=== PATIENT | female | born 1995 | race Hispanic/Latino ===

== ENCOUNTER 2018-12-23 16:54 | Emergency (ER) | payer BC, OTHER ==
[2018-12-23] MEDS ORDERED: PANTOPRAZOLE 40 MG INJ ONE (17:26)
[2018-12-23] MEDS ORDERED: NA CHLORIDE 0.9% 1,000 ML ONE (17:26)
[2018-12-23] MEDS ORDERED: ONDANSETRON 4 MG/2 ML VIAL ONE (17:26)
[2018-12-23 17:32] LABS: Absolute Lymphocytes (CBC) 1.5 K/uL (0.7-4.9); Basophils % 0.4 % (0-1.3); Hematocrit 47.4 % (36.0-45.0); Lymphocytes % 14.6 % (15.3-44.8); MPV 9.2 fL (7.6-11.3); RBC Red Blood Cell Count 5.35 M/uL (3.86-4.86)
[2018-12-23 17:33] LABS: Protime INR 1.14
[2018-12-23 17:50] LABS: Albumin 4.8 g/dL (3.4-5.0); Bilirubin Total 0.3 mg/dL (0.2-1.0); Potassium 3.7 mmol/L (3.5-5.1); Protein, Total 8.9 g/dL (6.4-8.2)
[2018-12-23 18:28] LABS: Urine Blood NEGATIVE (NEG); Urine Glucose NEGATIVE (NEG); Urine Protein 2+ (NEG); Urine pH 8.5 (5.0-7.0)
--- NOTE | 2018-12-23 18:51 | ER ---
Nurse's Notes [facility] Name: Ayla Harvey Age: 23 yrs Sex: Female : 1995 Arrival Date: 12/23/2018 Time: 16:59 Bed 25 Private MD: Diagnosis: Vomiting;Gastrointestinal hemorrhage, unspecified-UPPER , STABLE Presentation: 12/23 17:04 Presenting complaint: Patient states: i started vomiting blood since this morning like dark blood and i couldn't hold fluids; reports L side abd pain;. Transition of care: patient was not received from another setting of care. Onset of symptoms was December 23, 2018. Risk Assessment: Do you want to hurt yourself or someone else? Patient reports no desire to harm self or others. Initial Sepsis Screen: Does the patient meet any 2 criteria? No. Patient's initial sepsis screen is negative. Does the patient have a suspected source of infection? No. Patient's initial sepsis screen is negative. Care prior to arrival: None. 17:04 Method Of Arrival: Ambulatory 17:04 Acuity: RA 3 Triage Assessment: 17:05 General: Appears in no apparent distress. comfortable, Behavior is cooperative, bp appropriate for age, anxious. Pain: Complains of pain in abdomen. EENT: No deficits noted. Neuro: No deficits noted. Cardiovascular: No deficits noted. Respiratory: No deficits noted. GI: Reports nausea, vomiting. : No signs and/or symptoms were reported regarding the genitourinary system. Derm: No deficits noted. Musculoskeletal: No deficits noted. 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 - Social history:: Smoking status: Patient uses tobacco products, unknown amount. - Family history:: not pertinent. - Ebola Screening: : No symptoms or risks identified at this time. Screenin:18 Abuse screen: Denies threats or abuse. Denies injuries from another. Nutritional bp screening: No deficits noted. Tuberculosis screening: No symptoms or risk factors identified. Fall Risk None identified. Assessment: 17:05 General: SEE TRIAGE NOTE. bp 17:54 Reassessment: ALL CURRENT ORDERS COMPLETED, RESULTS PENDING. NO ACTIVE VOMITING AT THIS bp TIME. Vital Signs: 17:05 BP 125 / 85; Pulse 105; Resp 18; Temp 98.1(O); Pulse Ox 100% on R/A; Weight 58.97 kg; hj Height 5 ft. 2 in. (157.48 cm); Pain 6/10; 17:55 BP 110 / 74; Pulse 86; Resp 16; Pulse Ox 98% ; bp 17:05 Body Mass Index 23.78 (58.97 kg, 157.48 cm) ED Course: 16:59 Patient arrived in ED. mr 17:05 Triage completed. hj 17:05 Arm band placed on left wrist. hj 17:09 Don Eugene, CHANTE is Primary Nurse. bp 17:11 Renzo Brand MD is Attending Physician. [facility] 17:18 Patient has correct armband on for positive identification. Bed in low position. Call bp light in reach. Side rails up X2. Adult w/ patient. 17:20 Inserted saline lock: 20 gauge in left antecubital area, using aseptic technique. Blood bp collected. 19:05 No provider procedures requiring assistance completed. IV discontinued, intact, bp bleeding controlled, No redness/swelling at site. Pressure dressing applied. Administered Medications: 17:30 Drug: NS 0.9% 1000 ml Route: IV; Rate: 1 bolus; Site: left antecubital; bp 19:07 Follow up: IV Status: Completed infusion; IV Intake: 1000ml bp 17:30 Drug: Zofran 4 mg Route: IVP; Site: left antecubital; bp 19:07 Follow up: Response: Nausea is decreased bp 17:30 Drug: ProTONIX 40 mg Route: IVP; Site: left antecubital; bp 19:07 Follow up: Response: No adverse reaction bp Intake: 19:07 IV: 1000ml; Total: 1000ml. bp Outcome: 18:50 Discharge ordered by . coreen 19:05 Discharged to home ambulatory, with family. bp 19:05 Condition: stable 19:05 Discharge instructions given to patient, Instructed on discharge instructions, follow up and referral plans. medication usage, Demonstrated understanding of instructions, follow-up care, medications, Prescriptions given X 2. 19:06 Patient left the ED. iw Signatures: Renzo Brand MD MD cha Rivera, Mary mr Williams, Irene, RN RN Justin Chan, RN RN Don Stanford, RN RN bp
--- NOTE | 2018-12-23 18:52 | EDPHYS ---
Physician Documentation [facility] Name: Ayla Harvey Age: 23 yrs Sex: Female : 1995 Arrival Date: 12/23/2018 Time: 16:59 Bed 25 Private MD: ED Physician Renzo Brand HPI: 12/23 18:47 This 23 yrs old Female presents to ER via Ambulatory with complaints of coreen Vomiting blood. 18:47 The patient presents with abdominal pain in the upper abdomen. Onset: The coreen symptoms/episode began/occurred just prior to arrival, this morning. The patient presents to the emergency department vomiting blood, a small amount. Onset: The symptoms/episode began/occurred this morning. Abdominal pain: described as crampy, located in the epigastric area. Modifying factors: The symptoms are alleviated by nothing, the symptoms are aggravated by nothing. The symptoms do not radiate. 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 - Social history:: Smoking status: Patient uses tobacco products, unknown amount. - Family history:: not pertinent. - Ebola Screening: : No symptoms or risks identified at this time. ROS: 18:47 Constitutional: Negative for fever, chills, and weight loss, Eyes: Negative for injury, coreen pain, redness, and discharge, ENT: Negative for injury, pain, and discharge, Neck: Negative for injury, pain, and swelling, Cardiovascular: Negative for chest pain, palpitations, and edema, Respiratory: Negative for shortness of breath, cough, wheezing, and pleuritic chest pain, Back: Negative for injury and pain, : Negative for injury, bleeding, discharge, and swelling, MS/Extremity: Negative for injury and deformity, Skin: Negative for injury, rash, and discoloration, Neuro: Negative for headache, weakness, numbness, tingling, and seizure, Psych: Negative for depression, anxiety, suicide ideation, homicidal ideation, and hallucinations, Allergy/Immunology: Negative for hives, rash, and allergies, Endocrine: Negative for neck swelling, polydipsia, polyuria, polyphagia, and marked weight changes, Hematologic/Lymphatic: Negative for swollen nodes, abnormal bleeding, and unusual bruising. 18:47 Abdomen/GI: Positive for nausea and vomiting, vomiting. Exam: 18:47 Constitutional: This is a well developed, well nourished patient who is awake, alert, coreen and in no acute distress. Head/Face: Normocephalic, atraumatic. Eyes: Pupils equal round and reactive to light, extra-ocular motions intact. Lids and lashes normal. Conjunctiva and sclera are non-icteric and not injected. Cornea within normal limits. Periorbital areas with no swelling, redness, or edema. ENT: Nares patent. No nasal discharge, no septal abnormalities noted. Tympanic membranes are normal and external auditory canals are clear. Oropharynx with no redness, swelling, or masses, exudates, or evidence of obstruction, uvula midline. Mucous membranes moist. Neck: Trachea midline, no thyromegaly or masses palpated, and no cervical lymphadenopathy. Supple, full range of motion without nuchal rigidity, or vertebral point tenderness. No Meningismus. Chest/axilla: Normal chest wall appearance and motion. Nontender with no deformity. No lesions are appreciated. Cardiovascular: Regular rate and rhythm with a normal S1 and S2. No gallops, murmurs, or rubs. Normal PMI, no JVD. No pulse deficits. Respiratory: Lungs have equal breath sounds bilaterally, clear to auscultation and percussion. No rales, rhonchi or wheezes noted. No increased work of breathing, no retractions or nasal flaring. Abdomen/GI: Soft, non-tender, with normal bowel sounds. No distension or tympany. No guarding or rebound. No evidence of tenderness throughout. Back: No spinal tenderness. No costovertebral tenderness. Full range of motion. Skin: Warm, dry with normal turgor. Normal color with no rashes, no lesions, and no evidence of cellulitis. MS/ Extremity: Pulses equal, no cyanosis. Neurovascular intact. Full, normal range of motion. Neuro: Awake and alert, GCS 15, oriented to person, place, time, and situation. Cranial nerves II-XII grossly intact. Motor strength 5/5 in all extremities. Sensory grossly intact. Cerebellar exam normal. Normal gait. Psych: Awake, alert, with orientation to person, place and time. Behavior, mood, and affect are within normal limits. Vital Signs: 17:05 BP 125 / 85; Pulse 105; Resp 18; Temp 98.1(O); Pulse Ox 100% on R/A; Weight 58.97 kg; hj Height 5 ft. 2 in. (157.48 cm); Pain 6/10; 17:55 BP 110 / 74; Pulse 86; Resp 16; Pulse Ox 98% ; bp 17:05 Body Mass Index 23.78 (58.97 kg, 157.48 cm) hj MDM: 17:11 Patient medically screened. [facility] 12/23 17:12 Order name: CBC with Diff; Complete Time: 18:47 [facility] 12/23 17:12 Order name: Comprehensive Metabolic Panel; Complete Time: 18:47 [facility] 12/23 17:12 Order name: PT-INR; Complete Time: 18:47 [facility] 12/23 17:12 Order name: Lipase; Complete Time: 18:47 [facility] 12/23 17:35 Order name: Urine Dipstick--Ancillary (enter results); Complete Time: 18:47 12/23 17:35 Order name: Urine --Ancillary (enter results); Complete Time: 18:47 12/23 17:12 Order name: Urine Dipstick-Ancillary (obtain specimen); Complete Time: 17:33 [facility] 12/23 17:12 Order name: Urine Test (obtain specimen); Complete Time: 17:33 [facility] Administered Medications: 17:30 Drug: NS 0.9% 1000 ml Route: IV; Rate: 1 bolus; Site: left antecubital; bp 19:07 Follow up: IV Status: Completed infusion; IV Intake: 1000ml bp 17:30 Drug: Zofran 4 mg Route: IVP; Site: left antecubital; bp 19:07 Follow up: Response: Nausea is decreased bp 17:30 Drug: ProTONIX 40 mg Route: IVP; Site: left antecubital; bp 19:07 Follow up: Response: No adverse reaction bp Disposition: 12/23/18 18:50 Discharged to Home. Impression: Vomiting, Gastrointestinal hemorrhage, unspecified - UPPER , STABLE. - Condition is Stable. - Discharge Instructions: Hematemesis, Nausea and Vomiting, Adult, Nausea and Vomiting, Adult, [id number]. - Prescriptions for Protonix 40 mg Oral Tablet - take 1 tablet by ORAL route once daily; 30 tablet. Zofran 4 mg Oral Tablet - take 1 tablet by ORAL route every 12 hours As needed; 20 tablet. - Medication Reconciliation Form, Thank You Letter, Antibiotic Education, Prescription Opioid Use form. - Follow up: Private Physician; When: 2 - 3 days; Reason: Recheck today's complaints, Continuance of care, Re-evaluation by your physician. - Problem is new. - Symptoms have improved. Signatures: Dispatcher [employer] EDNE Renzo Brand MD MD cha Williams, Irene, RN RN Justin Chan RN RN Don Eugene RN RN bp Corrections: (The following items were deleted from the chart) 19:06 18:50 12/23/2018 18:50 Discharged to Home. Impression: Vomiting; Gastrointestinal iw hemorrhage, unspecified - UPPER , STABLE. Condition is Stable. Forms are Medication Reconciliation Form, Thank You Letter, Antibiotic Education, Prescription Opioid Use. Follow up: Private Physician; When: 2 - 3 days; Reason: Recheck today's complaints, Continuance of care, Re-evaluation by your physician. Problem is new. Symptoms have improved. coreen
== END 2018-12-23 19:06 | disposition home or self-care (01) ==
LOC: ER 16:54
DX: K92.2 Gastrointestinal hemorrhage, unspecified (principal); Z72.0 Tobacco use
CPT/HCPCS: 85025; 36415; 81025; 85610; 81003; 83690; 80053; C9113; J7030; J2405; 96361; 96374; 96375; 99284

== ENCOUNTER 2024-12-17 12:00 | Emergency (ER) | payer BC, OTHER ==
--- OUTSIDE RECORDS SUMMARY | 2024-12-17 12:13 | XMS REPORT | Continuity of Care Document ---
Author Name Unknown Address [address] [facility] [address] [place] [address] [facility] Address [address] 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 Name Role Phone RACHAEL CAMPBELL Primary Care Physician Unavail able Only, Mello Db Test Attending Clinician UnavailDolly Willett Attending Clinician [phone] DOLLY NEWMAN Attending Clinician Unavailabl e Doctor Unassigned, [place] Attending Clinician U RACHAEL Sargent Attending Clinician Unavailabl e JEFFREY HECK Attending Clinician Unavailable Rachael Murray Attending Clinician [phone] Visit, Ranjitchyissel Nurse Attending Clinician Unahunter DURÁN, Filiberto Caldwell Attending Clinician + [phone] Marcie Garcia Attending Clinician [phone] MARCIE YARBROUGH Attending Clinician Unavailable Ryann Fournier MD Attending Clinician [phone] RYANN FOURNIER Attending Clinician Unavailabl e Payers Payer Name Policy Type Policy Number Effective Date Expirati on Date Source [facility] [id number] 2019 00:00:00 [employer] II [id number] 2012 00:00:00 Problems Condition Name Condition Details Condition Category Status Onset Date Resolution Date Last Treatment Date Treating Clinician Comments Source Mixed hyperlipid emia Mixed hyperlipid emia Disease Active 2019-04 00:00: 00 [facility] Atypical squamous cell of undetermin ed significan ce of cervix Atypical squamous cell of undetermin ed significan ce of cervix Disease Active 01-15 00:00: 00 [facility] Missed menses Missed menses Disease Active 01-05 00:00: 00 [facility] Encounter for other general counseling or advice on contracept ion Encounter for other general counseling or advice on contracept ion Disease Active 01-05 00:00: 00 [facility] BMI 28.0-28.9, adult BMI 28.0-28.9, adult Disease Active 01-05 00:00: 00 [facility] Irregular menstrual cycle Irregular menstrual cycle Disease Active 01-05 00:00: 00 [facility] No known active problems No known active problems Disease [facility] Allergies, Adverse Reactions, Alerts Allergy Name Allergy Type Status Severity Reaction(s) Onset Date Inactive Date Treating Clinician Comments Source NO KNOWN ALLERGIE S Drug Class Active [facility] Social History Social Habit Start Date Stop Date Quantity Comments Source Exposure to SARS-CoV-2 (event) Yes [facility] History of tobacco use Cigarette Smoker [facility] Alcohol intake 2020-04-06 00:00:00 2020-04-06 00:00:00 Current drinker of alcohol (finding) [facility] History SDOH Alcohol Frequency 2020-01-06 00:00:00 2020-01-06 00:00:00 99 [facility] History SDOH Alcohol Std Drinks 2020-01-06 00:00:00 2020-01-06 00:00:00 99 [facility] History SDOH Alcohol Binge 2020-01-06 00:00:00 2020-01-06 00:00:00 99 [facility] Tobacco use and exposure 2020-01-06 00:00:00 2020-01-06 00:00:00 Never used [facility] Alcohol Comment 2020-01-06 00:00:00 2020-01-06 00:00:00 social [facility] Sex Assigned At 1995 00:00:00 1995 00:00:00 [facility] Smoking Status Start Date Stop Date Source Current every day smoker 2020-01-06 00:00:00 [facility] Never smoker [facility] Medications Ordered Medication Name Filled Medication Name Start Date Stop Date Current Medication? Ordering Clinician Indication Dosage Frequency Signature (SIG) Comments Components Source medroxyPROG ESTERone (PROVERA) 10 mg tablet 01-05 00:00: 00 01-16 04:59 :00 No [id number] 10mg Take 1 tablet by mouth daily for 10 days. [facility] MELOXICAM 15 mg tablet 12-31 00:00: 00 Yes [id number] TAKE 1 TABLET BY MOUTH EVERY DAY [facility] meloxicam 15 mg tablet 12-07 00:00: 00 12-31 00:00 :00 No [id number] 15mg Take 1 tablet by mouth daily for 30 days. [facility] mupirocin (BACTROBAN OINT) 2 % ointment 11-14 00:00: 00 01-05 00:00 :00 No Apply to area(s) 3 (three) times daily. [facility] Vital Signs Vital Name Observation Time Observation Value Comments S roselyn Systolic blood pressure 2020-04-06 19:27:00 124 mm[Hg] [facility] Diastolic blood pressure 2020-04-06 19:27:00 84 mm[Hg] [facility] Heart rate 2020-04-06 19:27:00 82 /min [facility] Body temperature 2020-04-06 19:27:00 37 Anh [facility] Respiratory rate 2020-04-06 19:27:00 16 /min [facility] Body height 2020-04-06 19:27:00 157.5 cm [facility] Body weight 2020-04-06 19:27:00 70.421 kg [facility] BMI 2020-04-06 19:27:00 28.40 kg/m2 [facility] Systolic blood pressure 2020-02-13 18:04:00 116 mm[Hg] [facility] Diastolic blood pressure 2020-02-13 18:04:00 83 mm[Hg] [facility] Heart rate 2020-02-13 18:04:00 75 /min [facility] Body temperature 2020-02-13 18:04:00 36.17 Anh [facility] Respiratory rate 2020-02-13 18:04:00 16 /min [facility] Body height 2020-02-13 18:04:00 157.5 cm [facility] Body weight 2020-02-13 18:04:00 71.356 kg [facility] BMI 2020-02-13 18:04:00 28.77 kg/m2 [facility] Systolic blood pressure 2020-01-06 18:49:00 118 mm[Hg] [facility] Diastolic blood pressure 2020-01-06 18:49:00 81 mm[Hg] [facility] Heart rate 2020-01-06 18:49:00 71 /min Un[facility] Body temperature 2020-01-06 18:49:00 36.17 Anh [facility] Respiratory rate 2020-01-06 18:49:00 16 /min [facility] Body height 2020-01-06 18:49:00 157.5 cm [facility] Body weight 2020-01-06 18:49:00 71.215 kg [facility] BMI 2020-01-06 18:49:00 28.72 kg/m2 [facility] Systolic blood pressure 2019-12-08 19:41:00 127 mm[Hg] [facility] Diastolic blood pressure 2019-12-08 19:41:00 89 mm[Hg] [facility] Heart rate 2019-12-08 19:41:00 73 /min [facility] Body height 2019-12-08 19:33:00 157.5 cm [facility] Body weight 2019-12-08 19:33:00 70.126 kg [facility] BMI 2019-12-08 19:33:00 28.28 kg/m2 [facility] Procedures Procedure Date / Time Performed Performing Clinician Source COVID-19 (MOLECULAR TESTING NUCLEIC ACID AMPLIFICATION) 2021-04-27 01:15:00 Kathryn Boss [facility] LAB ONLY COVID INTERPRETATION 2021-04-27 01:15:00 Kathryn Boss [facility] CONSENT/REFUSAL FOR DIAGNOSIS AND TREATMENT 2021-04-27 01:07:06 Doctor Unassigned, [place] [facility] FLU VACC ([id number]), 6+ MONTHS, IM, QUAD 2020-04-06 20:11:07 Rachael Campbell [facility] GARDASIL 9 (HPV 9V) VACCINE 2020-02-13 18:07:20 Rachael Campbell [facility] GARDASIL 9 (HPV 9V) VACCINE 2020-01-06 19:51:13 Rachael Campbell [facility] POCT TEST 2020-01-06 19:00:00 Davian Campbell [facility] XR TOES 2 VW RIGHT 2019-12-04 21:19:35 Ryann Fournier [facility] Encounters Start Date/Time End Date/Time Encounter Type Admission Type Attending [facility] Care Department Encounter ID Source 2024-01-31 15:00:44 2024-01-31 15:00:44 Outpatient [facility] [id number] Wayne [address] Fahad 2022-12-19 11:02:10 2022-12-19 11:02:10 Outpatient [facility] [id number] Wayne Mag Fahad 2021-04-26 19:40:00 2021-04-26 19:40:00 Laboratory Only Only, Ang Db Test [facility]placed by [facility] 1.840.114 350.1.13.10 4.2.7.2.686 [id number] [facility] 2021-04-26 19:40:00 2021-04-26 19:17:02 [id number] 2021-04-26 00:00:00 2021-04-26 00:00:00 Orders Only Doctor Unassigned, [place] [facility] 1.840.114 350.1.13.10 4.2.7.2.686 [id number] [facility] 2021-01-13 13:00:00 2021-01-13 13:00:00 Outpatient R RACHAEL CAMPBELL [facility] [id number] [facility] 2020-08-07 14:30:00 2020-08-07 14:43:38 [address] [facility] [id number] [facility] 2020-07-17 15:40:00 2020-07-17 15:40:00 Outpatient R JEFFREY HECK [facility] [id number] [facility] 2020-07-06 15:00:00 2020-07-06 15:00:[address] [facility] [id number] [facility] 2020-04-07 00:00:00 2020-04-07 00:00:00 Telephone Rachael Campbell [facility] DEVELOPMENT TECHNICAL LEAD [facility] 1..840.114 350.1.13.10 4.2.7.2.686 [id number] [facility] 2020-04-06 13:14:31 2020-04-06 14:17:05 Office Visit Rachael Campbell [facility] DEVELOPMENT TECHNICAL LEAD [facility] 1..840.114 350.1.13.10 4.2.7.2.686 [id number] [facility] 2020-04-06 13:30:00 2020-04-06 13:30:[address] [facility] [id number] [facility] 2020-02-13 12:45:49 2020-02-13 13:15:05 Nurse Visit Visit, Ang-Rmp Nurse Filiberto Feliz Emily [facility] DEVELOPMENT TECHNICAL LEAD [facility] 1..840.114 350.1.13.10 4.2.7.2.686 [id number] [facility] 2020-02-13 13:00:00 2020-02-13 13:00:00 Outpatient R RACHAEL CAMPBELL [facility] [id number] [facility] 2020-02-06 13:00:00 2020-02-06 13:00:[address] [facility] [id number] [facility] 2020-01-20 00:00:00 2020-01-20 00:00:00 Telephone Rachael Campbell [facility] DEVELOPMENT TECHNICAL LEAD [facility] 1.2.840.114 350.1.13.10 4.2.7.2.686 [id number] [facility] 2020-01-16 00:00:00 2020-01-16 00:00:00 Telephone Rachael Campbell [facility] DEVELOPMENT TECHNICAL LEAD [facility] 1.2.840.114 350.1.13.10 4.2.7.2.686 [id number] [facility] 2020-01-07 00:00:00 2020-01-07 00:00:00 Telephone Rachael Campbell [facility] DEVELOPMENT TECHNICAL LEAD [facility] 1.2.840.114 350.1.13.10 4.2.7.2.686 [id number] [facility] 2020-01-06 13:34:08 2020-01-06 14:49:17 Office Visit Rachael Campbell [facility] DEVELOPMENT TECHNICAL LEAD [facility] 1.2.840.114 350.1.13.10 4.2.7.2.686 [id number] [facility] 2020-01-06 13:45:00 2020-01-06 13:45:00 Outpatient R RACHAEL CAMPBELL [facility] [id number] [facility] 2019-12-30 00:00:00 2019-12-30 00:00:00 Marcie Moffett [facility] 1.2.840.114 350.1.13.10 4.2.7.2.686 [id number] [facility] 2019-12-08 14:28:15 2019-12-08 14:43:15 Office Visit Yarbrough Marcie Kaveh [facility] lakeisha Moore 1.2.840.114 350.1.13.10 4.2.7.2.686 [id number] [facility] 2019-12-08 14:30:00 2019-12-08 14:30:00 Outpatient R MARCIE YARBROUGH [facility] [id number] [facility] 2019-12-04 16:00:00 2019-12-04 23:59:00 Hospital Encounter Ryann Fournier [facility] 1.2.840.114 350.1.13.10 4.2.7.2.686 [id number] [facility] 2019-12-04 00:00:00 2019-12-04 00:00:00 Outpatient R FOURNIER RY[address] [facility] [id number] [facility] Results Test Description Test Time Test Comments Results Result Co mments Source [id number] 19:00:00* Test Item Value Reference Range Interpretation Comme nts POCT PREG (test code = 1605) Negative On board controls acceptable with C Line (test code = 3574) Yes POCT PREG LOT # (test code = 3575) POCT PREG TEST DATE ( test code = 3576) [facility] VW [id number] 21:27:19No acute bony abnormality is present. EXAM: XR TOES 2 VW RIGHT HISTORY: pain in foot COMPARISON: None FINDINGS: Imaging of the right great toe demonstrates no fracture, subluxation orerosion. [facility] Results Inft - 12/04/2019 4:28 PM CDTEXAM:XR TOES 2 VW RIGHTHISTORY:pain in foot COMPARISON:NoneFINDINGS: Imaging of the right great toe demonstrates no fracture, subluxation orerosion. IMPRESSIONNo acute bony abnormality is present.[facility]
[2024-12-17 13:01] LABS: Absolute Lymphocytes (CBC) 1.2 K/uL (0.7-4.9); Hematocrit 43.9 % (36.0-45.0); Hemoglobin 14.7 g/dL (12.0-15.0); MCH 28.3 pg (27.0-35.0); MCHC 33.4 g/dL (32.0-36.0); MCV 84.5 fL (80-100); MPV 9.2 fL (7.6-11.3); Nucleated RBC Absolute Count 0.0 (0-0); Nucleated Red Blood Cells % 0.1 % (0-0); RBC Red Blood Cell Count 5.19 M/uL (3.86-4.86); White Blood Count 7.20 thou/uL (4.3-10.9)
[2024-12-17 13:04] LABS: Sqamous Epithelial <5 /HPF (None Seen); Urine Culture Reflex Order NOT NEEDED; Urine Microscopic Reflex YN ORDER UMIC; Urine Yeast (Budding) Trace /HPF (None Seen)
[2024-12-17 13:22] LABS: ALT/SGPT 21 U/L (13-56); Albumin 4.0 g/dL (3.4-5.0); Albumin/Globulin Ratio 1.2 (1.1-1.8); Alkaline Phosphatase 72 U/L (45-117); Anion Gap 9.8 mEq/L (5.0-15.0); BUN Blood Urea Nitrogen 12 mg/dL (7-18); Globulin 3.3 g/dL (2.3-3.5); Glucose Level 123 mg/dL (74-106); Lipase 14 U/L (13-75); Potassium 3.8 mEq/L (3.5-5.1)
[2024-12-17 13:24] LABS: AST/SGOT < 10 U/L (15-37)
[2024-12-17] MEDS ORDERED: ONDANSETRON 4 MG/2 ML VIAL ONE (13:53)
[2024-12-17] MEDS ORDERED: FAMOTIDINE 20 MG/2 ML VIAL IV ONE (13:53)
[2024-12-17] MEDS ORDERED: NA CHLORIDE 0.9% 1,000 ML ONE (13:53)
[2024-12-17] MEDS ORDERED: KETOROLAC 30 MG/ML INJ ONE (14:26)
--- NOTE | 2024-12-17 14:38 | RAD REPORT ---
EXAMINATION: CT Abdomen Pelvis W Contrast CLINICAL INDICATION: Female, 29 years old. diarrhea;Abd pain TECHNIQUE: CT abdomen and pelvis was performed, after the administration of IV contrast, as [facility]. Axial, sagittal and coronal reconstructions were obtained. One or more of the following dose reduction techniques were used: Automated exposure control, adjustment of the mA and k V according to patient size, and iterative reconstruction. Unless otherwise specified, incidental findings do not require dedicated imaging follow-up. COMPARISON: Abdomen ultrasound 03/03/2013 FINDINGS: Motion artifact at the level of the mid abdomen limits evaluation. LOWER CHEST: The visualized lung bases are clear. LIVER: Normal in size and contour. No focal lesion. BILIARY SYSTEM: No suspicious abnormalities. SPLEEN: Normal size. No focal lesion. PANCREAS: No mass, ductal dilation, or betty-pancreatic fluid. ADRENALS: Normal; no mass. KIDNEYS: Normal size and contour. No hydronephrosis. URINARY BLADDER: Unremarkable. GASTROINTESTINAL TRACT: Segmental mild wall thickening along the distal ileum, with mild mucosal hype renhancement. No evidence of free air, bowel obstruction or abscess. Trace pelvic fluid. APPENDIX: Normal appendix. LYMPH NODES: No lymphadenopathy. MUSCULOSKELETAL: No acute or suspicious osseous abnormality. ADDITIONAL FINDINGS: Retroverted uterus. IMPRESSION: Segmental mild wall thickening along the distal ileum, with mild mucosal hyperenhancement, compatible with nonspecific infectious or inflammatory enteritis. Trace free pelvic fluid.
--- NOTE | 2024-12-17 15:08 | ER ---
Nurse's Notes [facility] Name: Ayla Harvey Age: 29 yrs Sex: Female : 1995 Arrival Date: 12/17/2024 Time: 12:00 Bed 12 Private MD: Diagnosis: Other viral enteritis Presentation: 12/17 12:16 Chief complaint: Patient states: Abdominal pain onset Sunday. Pt states that she is cm10 also having vomiting and diarrhea. Pt states that the pain has been intermittent. Coronavirus screen: Client denies travel out of the [place] in the last 14 days. Ebola Screen: Patient denies travel to an Ebola-affected area in the 21 days before illness onset. Initial Sepsis Screen: Does the patient meet any 2 criteria? No. Patient's initial sepsis screen is negative. Does the patient have a suspected source of infection? No. Patient's initial sepsis screen is negative. Risk Assessment: Do you want to hurt yourself or someone else? Patient reports no desire to harm self or others. Onset of symptoms was December 14, 2024. 12:16 Method Of Arrival: Ambulatory cm10 12:16 Acuity: RA 3 cm10 Triage Assessment: 12:17 General: Appears in no apparent distress. uncomfortable, Behavior is calm, cooperative. cm10 Pain: Complains of pain in abdomen Pain does not radiate. Pain currently is 8 out of 10 on a pain scale. Quality of pain is described as aching, sharp, shooting, stabbing. Neuro: No deficits noted. Level of Consciousness is awake, alert, obeys commands, Oriented to person, place, time, situation, Appropriate for age. Respiratory: No deficits noted. Airway is patent Respiratory effort is even, unlabored, Respiratory pattern is regular, symmetrical. Historical: - Allergies: 12:17 No Known Allergies; cm10 - Home Meds: 12:17 None [Active]; cm10 - PMHx: 12:17 None; cm10 - PSHx: 12:17 None; cm10 - Immunization history:: Adult Immunizations up to date. - Infectious Disease History:: Denies. - Social history:: Smoking status: Patient denies any tobacco usage or history of. Patient uses street drugs, marijuana. Screenin:01 [facility] ED Fall Risk Assessment (Adult) History of falling in the last 3 months, dd2 including since admission No falls in past 3 months (0 pts) Confusion or Disorientation No (0 pts) Intoxicated or Sedated No (0 pts) Impaired Gait No (0 pts) Mobility Assist Device Used No (0 pt) Altered Elimination No (0 pt) Score/Fall Risk Level 0 - 2 = Low Risk Oriented to surroundings, Maintained a safe environment, Educated pt \T\ family on fall prevention, incl call for assistance when getting out of bed, Assessed \T\ reinforced patient's understanding of fall precautions, Hourly rounding (assess needs \T\ fall precautionary measures) done. Abuse screen: Denies threats or abuse. Denies injuries from another. Nutritional screening: No deficits noted. Tuberculosis screening: No symptoms or risk factors identified. Assessment: 13:14 Reassessment: Patient and/or family updated on plan of care and expected duration. Pain ll1 level reassessed. 15:07 Reassessment: Patient and/or family updated on plan of care and expected duration. Pain dd2 level reassessed. Patient is alert, oriented x 3, equal unlabored respirations, skin warm/dry/pink. Patient states feeling better. Patient states symptoms have improved. Vital Signs: 12:16 BP 106 / 75; Pulse 78; Resp 17; Temp 98.2; Pulse Ox 100% on R/A; Weight 67.13 kg; cm10 Height 5 ft. 2 in. ; Pain 8/10; 14:01 BP 101 / 67; Pulse 74; Resp 16; Pulse Ox 100% ; dd2 15:09 BP 108 / 69; Pulse 79; Resp 16; Pulse Ox 100% ; dd2 12:16 Body Mass Index 27.07 (67.13 kg, 157.48 cm) cm10 12:16 Pain Scale: Adult cm10 [place] Coma Score: 14:01 Eye Response: spontaneous(4). Motor Response: obeys commands(6). Verbal Response: dd2 oriented(5). Total: 15. ED Course: 12:01 Patient arrived in ED. mr 12:03 Enid Cruz PA-C is PHCP. sb4 12:03 Renzo Brand MD is Attending Physician. sb4 12:17 Triage completed. cm10 12:17 Arm band placed on right wrist. Patient placed in waiting room. cm10 12:52 UA Rfx Richardson Cult if indicated Sent. bc6 12:53 CBC with Diff Sent. bc6 12:53 CMP Sent. bc6 12:53 Lipase Sent. bc6 12:53 Test, Urine Sent. bc6 12:53 Initial lab(s) drawn, by me, sent to lab. Urine collected: clean catch specimen, bc6 cloudy. Inserted saline lock: 20 gauge in left antecubital area, using aseptic technique. Blood collected. Flushed with 10 mL NS. 13:14 Patient placed in an exam room, on a stretcher. ll1 13:25 CT Abd/Pelvis - IV Contrast Only In Process Unspecified. EDMS 14:01 Patient has correct armband on for positive identification. Bed in low position. Call dd2 light in reach. Side rails up X 1. Provided Education on: MEDICATIONS. Client placed on continuous cardiac and pulse oximetry monitoring. NIBP monitoring applied. Door closed. Noise minimized. Warm blanket given. Pillow given. Verbal reassurance given. 14:01 No provider procedures requiring assistance completed. Patient maintains SpO2 dd2 saturation greater than 95% on room air. 15:07 Parish Marks MD is Referral Physician. sb4 15:09 IV discontinued, intact, bleeding controlled, No redness/swelling at site. Pressure dd2 dressing applied. Administered Medications: 14:00 Drug: Famotidine IVP 20 mg IVP once; dilute with 10 mL 0.9% NaCl; give over 2 minutes dd2 Route: IVP; Site: left antecubital; 14:15 Follow up: Response: No adverse reaction dd2 14:00 Drug: Ondansetron IVP 4 mg IVP once; over 2 minutes Route: IVP; Site: left antecubital; dd2 14:15 Follow up: Response: No adverse reaction dd2 14:00 Drug: NS 0.9% IV 1000 ml IV at 1 bolus Per protocol; to be given as a bolus over 60 dd2 minutes Route: IV; Rate: 1 bolus; Site: left antecubital; 15:11 Follow up: IV Status: Completed infusion dd2 14:29 Drug: Ketorolac IVP 15 mg IVP once Route: IVP; Site: left antecubital; dd2 14:44 Follow up: Response: No adverse reaction dd2 Medication: 14:01 VIS not applicable for this client. dd2 Outcome: 15:07 Discharge ordered by . sb4 15:36 Discharged to home ambulatory, dd2 15:36 Condition: improved 15:36 Discharge instructions given to patient, Instructed on discharge instructions, follow up and referral plans. medication usage, Demonstrated understanding of instructions, follow-up care, medications, Prescriptions given X 3, 15:36 Patient left the ED. dd2 Signatures: Dispatcher [employer] EDMD Roman Corazon, Reg Reg mr Rahul aCrreon, RN RN ll1 Enid Cruz PATomerC PA-C sb4 Keerthi Espinoza6 Jahaira Doty, CHANTE RN cm10 SUDEEP MAXWELL RN RN dd2
--- NOTE | 2024-12-17 15:08 | EDPHYS ---
Physician Documentation [facility] Name: Ayla Harvey Age: 29 yrs Sex: Female : 1995 Arrival Date: 12/17/2024 Time: 12:00 Bed 12 Private MD: ED Physician Renzo Brand HPI: 12/17 13:42 This 29 yrs old Female presents to ER via Ambulatory with complaints of sb4 Abdominal Pain, Vomiting/Diarrhea. 13:42 Patient reports diarrhea for 4 days now with intermittent abdominal cramping. States 1 sb4 episode of vomiting this morning. Denies any recent travel. Denies any blood in her stool or vomit. States that she is post to start her menstrual cycle next week. Denies any chronic GI issues or pertinent medical history. Historical: - Allergies: 12:17 No Known Allergies; cm10 - Home Meds: 12:17 None [Active]; cm10 - PMHx: 12:17 None; cm10 - PSHx: 12:17 None; cm10 - Immunization history:: Adult Immunizations up to date. - Infectious Disease History:: Denies. - Social history:: Smoking status: Patient denies any tobacco usage or history of. Patient uses street drugs, marijuana. ROS: 13:42 Constitutional: Negative for fever, chills, and weight loss, sb4 13:42 Abdomen/GI: Positive for abdominal pain, nausea, vomiting, and diarrhea, 13:42 All other systems are negative, Exam: 13:42 Constitutional: This is a well developed, well nourished patient who is awake, alert, sb4 and in no acute distress. Head/Face: Normocephalic, atraumatic. Eyes: Extra-ocular motions intact. Periorbital areas with no swelling, redness, or edema. ENT: Mucous membranes moist. Cardiovascular: Regular rate and rhythm with a normal S1 and S2. Respiratory: No increased work of breathing, no retractions or nasal flaring. Abdomen/GI: Soft, non-tender, no distension. Skin: Warm, dry with normal turgor. Normal color with no rashes, no lesions, and no evidence of cellulitis. Vital Signs: 12:16 BP 106 / 75; Pulse 78; Resp 17; Temp 98.2; Pulse Ox 100% on R/A; Weight 67.13 kg; cm10 Height 5 ft. 2 in. ; Pain 8/10; 14:01 BP 101 / 67; Pulse 74; Resp 16; Pulse Ox 100% ; dd2 15:09 BP 108 / 69; Pulse 79; Resp 16; Pulse Ox 100% ; dd2 12:16 Body Mass Index 27.07 (67.13 kg, 157.48 cm) cm10 12:16 Pain Scale: Adult cm10 Emma Coma Score: 14:01 Eye Response: spontaneous(4). Motor Response: obeys commands(6). Verbal Response: dd2 oriented(5). Total: 15. MDM: 12:04 Medical Screening Exam initiated sb4 13:43 Differential diagnosis: diverticulitis, gastritis, urinary tract infection, sb4 gastroenteritis, colitis. 14:06 Independent interpretation of the following test(s) in the Emergency Department CT sb4 Scan: My interpretation is My interpretation of the CT abdomen pelvis images is abnormal appearance of the intestines with air present, no perforation noted or free air in the abdomen. 15:07 Data reviewed: vital signs, nurses notes, lab test result(s), radiologic studies, and sb4 as a result, I will discharge patient. Counseling: I had a detailed discussion with the patient and/or guardian regarding the historical points, exam findings, and any diagnostic results supporting the discharge/admit diagnosis, lab results, radiology results, the need for outpatient follow up, a estimation manager, to return to the emergency department if symptoms worsen or persist or if there are any questions or concerns that arise at home. Special discussion: Based on the patient's Hx, exam, and Dx evaluation, there is no indication for emergent surgery or inpatient Tx. It is understood by the patient/guardian that if the Sx's persist or worsen they need to return immediately for re-evaluation. 12/17 12:18 Order name: CBC with Diff; Complete Time: 13:10 sb4 12/17 12:18 Order name: CMP; Complete Time: 13:24 sb4 12/17 12:18 Order name: Lipase; Complete Time: 13:24 sb4 12/17 12:18 Order name: Test, Urine; Complete Time: 13:06 sb4 12/17 12:18 Order name: UA Rfx Richardson Cult if indicated; Complete Time: 13:06 sb4 12/17 12:18 Order name: CT Abd/Pelvis - IV Contrast Only; Complete Time: 14:39 sb4 12/17 12:18 Order name: IV Saline Lock; Complete Time: 12:52 sb4 12/17 12:18 Order name: Labs collected and sent; Complete Time: 12:52 sb4 12/17 14:06 Order name: PO challenge; Complete Time: 14:29 sb4 Administered Medications: 14:00 Drug: Famotidine IVP 20 mg IVP once; dilute with 10 mL 0.9% NaCl; give over 2 minutes dd2 Route: IVP; Site: left antecubital; 14:15 Follow up: Response: No adverse reaction dd2 14:00 Drug: Ondansetron IVP 4 mg IVP once; over 2 minutes Route: IVP; Site: left antecubital; dd2 14:15 Follow up: Response: No adverse reaction dd2 14:00 Drug: NS 0.9% IV 1000 ml IV at 1 bolus Per protocol; to be given as a bolus over 60 dd2 minutes Route: IV; Rate: 1 bolus; Site: left antecubital; 15:11 Follow up: IV Status: Completed infusion dd2 14:29 Drug: Ketorolac IVP 15 mg IVP once Route: IVP; Site: left antecubital; dd2 14:44 Follow up: Response: No adverse reaction dd2 Disposition: 12/18 13:44 Co-signature as Attending Physician, Renzo Brand MD I agree with the assessment and coreen plan of care. Disposition Summary: 12/17/24 15:07 Discharge Ordered Notes: Location: Home sb4 Problem: new sb4 Symptoms: have improved sb4 Condition: Stable sb4 Diagnosis - Other viral enteritis sb4 Followup: sb4 - With: Parish Marks MD - When: As needed - Reason: Further diagnostic work-up, Recheck today's complaints, Re-evaluation by your physician Discharge Instructions: - Discharge Summary Sheet sb4 - Viral Gastroenteritis, Adult, [id number] sb4 Forms: - Patient Portal Instructions sb4 - Leadership Thank You Letter sb4 - Work release form dd2 Prescriptions: - Imodium A-D 2 mg Oral tablet - take 1 tablet ORAL route every 6 hours as needed for loose stool; 12 tablet; sb4 Refills: 0, Product Selection Permitted - Pepcid 20 mg Oral Tablet - take 1 tablet ORAL route once daily for 10 days; 10 tablet; Refills: 0, Product sb4 Selection Permitted - dicyclomine 10 mg Oral capsule - take 1 capsule ORAL route 3 times per day; 12 capsule; Refills: 0, Product sb4 Selection Permitted Signatures: Dispatcher [employer] Renzo Mujica MD MD cha Brown, Sophia, PA-C PA-C sb4 Jahaira Doty RN RN cm10 SUDEEP MAXWELL RN RN dd2
[2024-12-17 22:04] VITALS: TEMP 98.2; O2SAT 100
[2024-12-17 22:19] VITALS: BP 108/69
== END 2024-12-17 15:36 | disposition home or self-care (01) ==
LOC: ER 12:00
DX: A08.39 Other viral enteritis (principal)
CPT/HCPCS: 85025; 81001; 36415; 81025; 83690; 80053; 74177; Q9967; J2405; J7030